=== PATIENT | female | born 1950 | race Caucasian/White ===

== ENCOUNTER → 2023-08-11 07:20 | Outpatient (REF) | payer OTHER, SELFPAY | LOC: MRI 3T 07:20 | PROVIDERS: ATTENDING PHYSICIAN Physician Assistant Medical; FAMILY PHYSICIAN Family Medicine | DX: M54.16 Radiculopathy, lumbar region (principal) | CPT/HCPCS: 72148 ==

== ENCOUNTER → 2024-01-02 10:11 | Outpatient (REF) | payer OTHER, SELFPAY | LOC: HWCARD 10:11 | PROVIDERS: ATTENDING PHYSICIAN Physical Medicine & Rehabilitation; FAMILY PHYSICIAN Family Medicine | DX: Z01.818 Encounter for other preprocedural examination (principal) | CPT/HCPCS: 93005 ==

== ENCOUNTER → 2024-09-01 09:02 | Outpatient (REF) | payer OTHER, SELFPAY | LOC: HWCARD 09:02 | PROVIDERS: ATTENDING PHYSICIAN Physical Medicine & Rehabilitation; FAMILY PHYSICIAN Family Medicine | DX: Z01.818 Encounter for other preprocedural examination (principal) | CPT/HCPCS: 93005 ==